=== PATIENT | male | born 1965 | race Caucasian/White ===

== ENCOUNTER 2016-02-25 10:50 | Emergency (ER) | payer OTHER ==
[~2016-02-25] VITALS: Ht 182.9 cm; Wt 147.4 kg
[2016-02-25 11:42] LABS: ABSOLUTE BASOPHIL COUNT 0 /CUMM (0.0-0.2); ABSOLUTE EOSINOPHIL COUNT 0.1 /CUMM (0.0-0.7); ABSOLUTE GRANULOCYTE CT 7.1 /CUMM (1.4-6.5); ABSOLUTE MONOCYTE COUNT 1.3 /CUMM (0.10-0.60); BASOPHIL % 0.2 % (0.0-2.0); EOSINOPHIL % 0.6 % (0-5); GRANULOCYTE % 67.5 % (42.2-75.2); HEMATOCRIT 48.9 % (42-52); MEAN CORPUSCULAR VOLUME 85.3 FL (80.0-94.0); MEAN PLATELET VOLUME 7.3 FL (7.4-10.4); PLATELET COUNT 278 /CUMM (130-400); RBC DISTRIBUTION WIDTH 13.9 % (11.5-14.5); RED BLOOD CELL CT 5.73 /CUMM (4.70-6.10); WHITE BLOOD CELL COUNT 10.6 /CUMM (4.8-10.8)
--- NOTE | 2016-02-25 13:13 | ED GI/GU/ABDOMINAL COMPLAINT ---
History of Present Illness General Chief Complaint: Abdominal Pain/Flank Pain Stated Complaint: KIDNEY PAIN Source: patient Exam Limitations: no limitations Vital Signs & Intake/Output Vital Signs & Intake/Output Vital Signs Date Time Temp Pulse Resp B/P Pulse O2 O2 Flow FiO2 Ox Delivery Rate 02/24 1508 97.6 65 18 154/86 97 Room Air 02/24 1320 97.1 75 18 170/87 98 Room Air 02/24 1055 99.1 77 20 123/67 99 Room Air Allergies Coded Allergies: No Known Allergies (02/25/16) Reconcile Medications Cyclobenzaprine HCl 5 MG TABLET 1 TAB PO TIDPRN PRN pain Hydrocodone/Acetaminophen ([place] 5-325 Tablet) 5 MG-325 MG TABLET 1 TAB PO BID PRN BREAKTHROUGH PAIN Methylprednisolone. (Medrol) 4 MG TAB.DS.PK 1 DP PO AD radiculopathy 6 on day 1 then reduce by one tablet daily until gone Triage Note: C/O RIGHT FLANK PAIN THAT RADIATES INTO RIGHT TESTICLE SINCE YESTERDAY. DENIES ANY URINARY SX. PT DENIES HX OF KIDNEY STONES Triage Nurses Notes Reviewed? yes Onset: Abrupt Duration: day(s): (2), constant Timing: recent history Quality/Severity: aching, sharpness Severity Numbers: 7 Location: right flank Radiation: RIGHT GROIN Activities at Onset: none Prior Abdominal Problems: none No Modifying Factors: none Associated Symptoms: DENIES HPI: 51-year-old male with history of hypertension, umbilical hernia repair presents complaining of right lower back and flank pain that's been radiating into his right groin for the past 2 days. Pain came on while at rest denies history of any heavy lifting trauma or fall. No history of similar symptoms in the past. He denies any abdominal pain nausea vomiting diarrhea no urinary complaints no hematuria. He took an old left over Vicodin this morning without any improvement. No chest pain or shortness of breath. The patient states that he cannot find a comfortable position. No penile pain or discharge, no scrotal swelling or testicular pain contrary to triage. (BETTYE PRASAD) Past History Travel History Traveled to [place] past 21 day No Medical History Any Pertinent Medical History? none Surgical History Surgical History: none Psychosocial History What is your primary language Uzbek Tobacco Use: Quit >30 days ago ETOH Use: occasional use Illicit Drug Use: denies illicit drug use Family History Hx Contributory? No (BETTYE PRASAD) Review of Systems Review of Systems Constitutional: Reports: see HPI. All Other Systems: Reviewed and Negative Comments Review of systems: See HPI, All other systems negative. Constitutional, no chills no fever, no malaise HEENT: No visual changes no sore throat no congestion Cardiovascular: No chest pain , no palpitation Skin, no jaundice no rashes, no change in skin Respiratory: No dyspnea no cough no sputum no hemoptysis GI: No nausea no vomiting, no diarrhea : No dysuria No hematuria, no frequency, no discharge Muscle skeletal: No joint pain, no joint swelling, no back pain, no neck pain, Neurologic: No numbnessno headache Psych: No stress Heme/endocrine: No bruising no bleeding no polyuria no polydipsia Immunology: No lymphadenopathy (BETTYE PRASAD) Physical Exam Physical Exam General Appearance: well developed/nourished, no apparent distress, alert, awake , comfortable Gastrointestinal: soft, non-tender Comments: Well-developed well-nourished person in no acute distress HEENT: Normal EENT exam; PERRL, EOMI,HEAD is atraumatic. moist mucous membranes. Neck: Supple, normal range of motion without pain or tenderness Back: Right sided paralumbar muscle tenderness to palpation no ecchymosis no CVA tenderness. Full range of motion Cardiovascular: Regular rate and rhythms no murmurs rubs Respiratory: No respiratory distress. Patient speaking in full complete sentences. Breath sounds clear to auscultation bilaterally: NO W/R/R Abdomen: Soft, nontender nondistended, no appreciable organomegaly. Normal bowel sounds. No rebound/guarding Extremity: No edema, positive straight leg raise to the right lower extremity full range of motion of extremities, normal and equal pulses bilaterally, 5 out of 5 strength noted to bilateral upper and lower extremities Neuro: Alert oriented x3, motor sensory normal. There were no obvious focal neurologic abnormalities. Skin: No appreciable rash on exposed skin, skin is warm and dry. Psych: Mood and affect is normal, memory and judgment is normal. Core Measures ACS in differential dx? No Severe Sepsis Present: No Septic Shock Present: No (BETTYE PRASAD) Progress Differential Diagnosis: AAA, appendicitis, bowel obstruction, colon cancer, orchitis, perforated viscous, pyelonephritis, SBO, testicular torsion, urinary retention, UTI/pyelo, lumbar strain cauda equina Plan of Care: Orders Procedure Date/time Status COMPREHENSIVE METABOLIC PANEL 02/24 1118 Complete CBC WITHOUT DIFFERENTIAL 02/24 1118 Complete URINALYSIS 02/24 1056 Complete Current Medications Sig/Loki Start time Last Medication Dose Stop Time Status Admin Sumatriptan Succinate 25 MG ONCE ONE 02/24 1315 CAN (Imitrex TAB) 02/24 1316 Laboratory Tests 02/25/16 1159: Urine Color YEL, Urine Clarity CLEAR, Urine pH 7.5, Ur Specific [place] 1.010, Urine Protein NEG, Urine Ketones NEG, Urine Nitrite NEG, Urine Bilirubin NEG, Urine Urobilinogen 1.0, Ur Leukocyte Esterase NEG, Ur Microscopic EXAM NOT REQUIRED, Urine Hemoglobin NEG, Urine Glucose NEG 02/25/16 1136: Anion Gap 12, Estimated GFR > 60, BUN/Creatinine Ratio 22.5, Glucose 108 H, Calcium 9.7, Total Bilirubin 0.8, AST 31, ALT 42, Alkaline Phosphatase 108, Total Protein 7.6, Albumin 4.3, Globulin 3.3, Albumin/Globulin Ratio 1.3, CBC w Diff NO MAN DIFF REQ, RBC 5.73, MCV 85.3, MCH 29.0, RDW 13.9, MPV 7.3 L, Gran % 67.5, Lymphocytes % 19.3 L, Monocytes % 12.4 H, Eosinophils % 0.6, Basophils % 0.2, Absolute Granulocytes 7.1 H, Absolute Lymphocytes 2.0, Absolute Monocytes 1.3 H, Absolute Eosinophils 0.1, Absolute Basophils 0, PUBS MCHC 34.0 Labs ordered old records reviewed patient declining anything for pain offered 02/25/2016 3:03:50 PM discussed the patient at length all of his lab results and CAT scan findings. Given positive straight leg raise symptoms are reproducible with palpation of the lower back discussed the need for close follow-up with his primary care physician prescription for Vicodin and Flexeril Medrol Dosepak provided advised return anytime sooner if symptoms worsen. I discussed with again at length of his CT findings he feels comfortable with this plan patient is ambulatory with steady gait. case was d/w dr haddad agrees with plan (BETTYE PRASAD) Diagnostic Imaging: Viewed by Me: CT Scan. Discussed w/RAD: CT Scan. Radiology Impression: PATIENT: ANGELICA ORONA PRESENT AGE: 51 PATIENT ACCOUNT NO: [id number] : 67 LOCATION: [facility] ORDERING PHYSICIAN: BETTYE PARRY SERVICE DATE: 02/25/16 EXAM TYPE: CAT - CT ABD & PELVIS W/O IV CONTRAS EXAMINATION: CT ABDOMEN AND PELVIS WITHOUT CONTRAST CLINICAL INFORMATION: Right lower back pain radiating to the groin. COMPARISON: None. TECHNIQUE: Multidetector volumetric imaging was performed from the superior aspect of the liver through the pubic symphysis. Sagittal and coronal reformatted images were obtained on the technologist's workstation. DLP: 1429 mGy-cm. FINDINGS: LUNG BASES: The visualized lung bases are unremarkable. LIVER, GALLBLADDER, AND BILIARY TREE: The liver is normal in size, shape, and attenuation. No focal hepatic lesion or biliary ductal dilatation is present. The gallbladder is unremarkable with no evidence of radiopaque gallstones, gallbladder wall thickening, or obvious pericholecystic inflammatory changes. PANCREAS: Unremarkable. SPLEEN: Unremarkable. ADRENAL GLANDS: Unremarkable. KIDNEYS AND URETERS: The kidneys are normal in size, shape, and attenuation. No hydronephrosis, hydroureter, or calculi seen. No perinephric stranding. BLADDER: Unremarkable. GASTROINTESTINAL TRACT: The stomach and small bowel appear unremarkable. No dilated loops of bowel or evidence of obstruction. Normal appendix. No colonic wall thickening or inflammatory change. No free air or free fluid. Scattered colonic diverticulosis without diverticulitis. ABDOMINAL WALL: Fat-containing left inguinal hernia. LYMPH NODES: Normal. VASCULAR: Unremarkable. PELVIC VISCERA: The prostate and seminal vesicles are unremarkable. OSSEOUS STRUCTURES: No acute or suspicious osseous abnormality. Mild degenerative changes of the spine. Vacuum disc phenomenon at L5-S1. IMPRESSION: No acute findings of the abdomen or pelvis. No hydronephrosis or nephrolithiasis. Normal appendix. DICTATED BY: FANY LIANG,JUDY DATE/TIME DICTATED:02/25/161432 LONG WALL MINING MACHINE TENDER:DUDLEY DATE/TIME TRANSCRIBED:1432 CONFIDENTIAL, DO NOT COPY WITHOUT APPROPRIATE AUTHORIZATION. < Electronically signed in Other Vendor System> Initial ED EKG: none (GERRI PARRY,BETTYE) Departure Departure Time of Disposition: 1500 Disposition: HOME OR SELF CARE Condition: Stable Clinical Impression Primary Impression: Low back strain Referrals: AGNES LIANG,BRIANNE Quintero (PCP/Family) Additional Instructions: Follow-up with Dr. Gurrola tomorrow for repeat evaluation early next week. Rest interchange ice and heat. Flexeril as directed Medrol dosepak as directed Vicodin for breakthrough pain use caution as this is a narcotic and will make you drowsy no driving or drinking alcohol while taking. These prescriptions were sent to your pharmacy return anytime sooner if he develop worsening pain despite medication or any other concerns Departure Forms: Customer Survey General Discharge Information Prescriptions: Current Visit Scripts Methylprednisolone. (Medrol) 1 DP PO AD #1 DP 6 on day 1 then reduce by one tablet daily until gone Cyclobenzaprine HCl 1 TAB PO TIDPRN PRN pain #12 TAB Hydrocodone/Acetaminophen ([place] 5-325 Tablet) 1 TAB PO BID PRN BREAKTHROUGH PAIN #10 TAB (BETTYE PRASAD) PA/DIE SINKER Co-Sign Statement Statement: ED Attending supervision documentation- [] I saw and evaluated the patient. I have also reviewed all the pertinent lab results and diagnostic results. I agree with the findings and the plan of care as documented in the PA's/DIE SINKER's documentation. [X] I have reviewed the ED Record and agree with the PA's/DIE SINKER's documentation. [] Additions or exceptions (if any) to the PAs/DIE SINKER's note and plan are summarized below: [] (MUNDO LIANG,TRUE)
--- NOTE | 2016-02-25 14:40 | CT SCAN REPORT ---
EXAMINATION: CT ABDOMEN AND PELVIS WITHOUT CONTRAST CLINICAL INFORMATION: Right lower back pain radiating to the groin. COMPARISON: None. TECHNIQUE: Multidetector volumetric imaging was performed from the superior aspect of the liver through the pubic symphysis. Sagittal and coronal reformatted images were obtained on the technologist's workstation. DLP: 1429 mGy-cm. FINDINGS: LUNG BASES: The visualized lung bases are unremarkable. LIVER, GALLBLADDER, AND BILIARY TREE: The liver is normal in size, shape, and attenuation. No focal hepatic lesion or biliary ductal dilatation is present. The gallbladder is unremarkable with no evidence of radiopaque gallstones, gallbladder wall thickening, or obvious pericholecystic inflammatory changes. PANCREAS: Unremarkable. SPLEEN: Unremarkable. ADRENAL GLANDS: Unremarkable. KIDNEYS AND URETERS: The kidneys are normal in size, shape, and attenuation. No hydronephrosis, hydroureter, or calculi seen. No perinephric stranding. BLADDER: Unremarkable. GASTROINTESTINAL TRACT: The stomach and small bowel appear unremarkable. No dilated loops of bowel or evidence of obstruction. Normal appendix. No colonic wall thickening or inflammatory change. No free air or free fluid. Scattered colonic diverticulosis without diverticulitis. ABDOMINAL WALL: Fat-containing left inguinal hernia. LYMPH NODES: Normal. VASCULAR: Unremarkable. PELVIC VISCERA: The prostate and seminal vesicles are unremarkable. OSSEOUS STRUCTURES: No acute or suspicious osseous abnormality. Mild degenerative changes of the spine. Vacuum disc phenomenon at L5-S1. IMPRESSION: No acute findings of the abdomen or pelvis. No hydronephrosis or nephrolithiasis. Normal appendix.
[2016-02-25] MEDS ORDERED: NORCO 5-325 TA1 EACH PO (15:02)
[2016-02-25] MEDS ORDERED: CYCLOBENZAPRINE5 M2 PO (15:02)
[2016-02-25] MEDS ORDERED: MEDROL4 M2 PO (15:02)
[2016-02-25 15:08] VITALS: BP 154/86
== END 2016-02-25 15:09 ==
LOC: ERH 10:50
PROVIDERS: Emergency Medicine
DX: S39.012A Strain of muscle, fascia and tendon of lower back, initial encounter (principal); X58.XXXA Exposure to other specified factors, initial encounter
CPT/HCPCS: 74176; 81003